=== PATIENT | female | born 2005 | race Caucasian/White ===

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

== ENCOUNTER 2024-01-01 08:45 | Emergency (ER) | payer OTHER ==
[~2024-01-01] VITALS: Ht 160 cm; Wt 85.9 kg
[~2024-01-01 08:45] MED LIST changes: +ACET-66 PO; +GUAIFDM PO; +IBUP-1554 PO
[2024-01-01 08:56] VITALS: TEMP 98.3
[2024-01-01] MEDS: SODIUM CHLORIDE 0.9% 1,000 ML IV ONE (09:42)
[2024-01-01] MEDS: ONDANSETRON HCL 4 MG/2 ML VIAL IVP ONE (09:42)
[2024-01-01] MEDS: DIPHENOXYLATE/ATROP 2.5-0.025 MG TABLET PO ONE (09:43)
[2024-01-01] MEDS: ACETAMINOPHEN 500 MG TABLET PO ONE (09:43)
[2024-01-01 10:05] LABS: BASOPHILS % (AUTO) 0.1 % (0.0-2.0); EOSINOPHILS % (AUTO) 0.2 % (1.0-6.0); HEMATOCRIT 39.4 % (36-46); LYMPHOCYTES # (AUTO) 0.4 K/uL (1.0-4.8); LYMPHOCYTES % (AUTO) 2.5 % (22.0-44.0); MEAN CORPUSCULAR HEMOGLOBIN 26.4 pg (26.0-34.0); MEAN CORPUSCULAR HGB CONC 32.9 G/dL (31.0-37.0); MEAN CORPUSCULAR VOLUME 80 fL (80-100); MONOCYTES # (AUTO) 0.4 K/uL (0.1-1.0); MONOCYTES % (AUTO) 2.5 % (2.0-9.0); NEUTROPHILS # (AUTO) 13.4 K/uL (1.8-7.7); PLATELET COUNT (AUTO) 285 K/uL (150-450); RED BLOOD CELL COUNT(AUTO) 4.92 MIL/uL (4.00-5.20); RED CELL DISTRIBUTION WIDTH 15.1 % (11.5-14.5); WHITE BLOOD COUNT (AUTO) 14.2 K/uL (4.5-11.0)
[2024-01-01 10:06] LABS: NEUTROPHILS % (AUTO) 94.7 % (40.0-70.0)
[2024-01-01 10:08] LABS: ANION GAP 13 mmol/L (8-16); CALCIUM, TOTAL 9.4 mg/dL (8.8-10.5); CARBON DIOXIDE 24 mmol/L (22-29); CHLORIDE 102 mmol/L (98-107); GLOMERULAR FILTR. RATE CALC > 60 mL/min (>60); GLUCOSE,RANDOM 130 mg/dL (70-110); SODIUM SERUM 139 mmol/L (136-145); UREA NITROGEN, BLOOD 13 mg/dL (7-18)
[2024-01-01] MEDS ORDERED: ONDA-104 PO (11:55)
[2024-01-01] MEDS ORDERED: DIPH-1130 PO (11:55)
[2024-01-01 12:10] VITALS: BP 106/63; PULSE 91; RESP 18
[2024-01-05] MEDS ORDERED: LEVO-72 PO (00:20)
[2024-01-05] MEDS ORDERED: DIPH-1243 PO (02:44)
[2024-01-05] MEDS ORDERED: ONDA-104 PO (02:44)
[2024-01-05] MEDS ORDERED: DEXA4 PO (02:44)
== END 2024-01-01 12:27 | disposition home or self-care (01) ==
LOC: EMS 08:45
DX: A08.4 Viral intestinal infection, unspecified (principal)
CPT/HCPCS: 99283; 96374; 96361; 80048; 84703; 85025; 36415; J2405; J7030